=== PATIENT | male | born 1995 | race Caucasian/White ===

== ENCOUNTER → 2017-11-30 | Emergency (ER) | payer OTHER ==
[~2017-11-30] VITALS: Ht 172.7 cm; Wt 71.7 kg
== END | disposition home or self-care (01) ==
LOC: ER 00:50
DX: S71.122A Laceration with foreign body, left thigh, initial encounter (principal); W18.39XA Other fall on same level, initial encounter; Y93.39 Activity, other involving climbing, rappelling and jumping off; Y92.89 Other specified places as the place of occurrence of the external cause; Y99.8 Other external cause status